=== PATIENT | male | born 1960 | race African-American/Black ===

== ENCOUNTER 2021-08-14 20:25 | Emergency (ER) | payer SELFPAY ==
[~2021-08-14] VITALS: Ht 167.6 cm; Wt 87.3 kg
[2021-08-14 20:40] VITALS: BP 143/84
[2021-08-14] MEDS ORDERED: acetaminophen 325mg tablet PO ONE (22:40)
== END 2021-08-14 23:57 | disposition home or self-care (01) ==
LOC: ER 20:29
DX: M54.9 Dorsalgia, unspecified (principal); M54.2 Cervicalgia; V98.8XXA Other specified transport accidents, initial encounter; Y93.89 Activity, other specified; Y92.89 Other specified places as the place of occurrence of the external cause; Y99.8 Other external cause status
CPT/HCPCS: 70450; 72125; 99285